=== PATIENT | male | born 1945 | race Caucasian/White ===

== ENCOUNTER → 2019-05-26 | Day surgery (SDC) | payer OTHER ==
[~2019-05-26] MED LIST: ACETAMINOPHEN 325 MG TABLET PO PRN; ALBUTEROL SULFATE 2.5 MG/3 ML NEBU. NEB PRN; ATROPINE 0.5 MG/5 ML DISP.SYRIN. IV PRN; IV RINGERS SOLUTION,LACTATED 1,000 ML IV SCH; MIDAZOLAM HCL PF 2 MG/2 ML VIAL. IV PRN; ONDANSETRON PF 4 MG/2 ML VIAL. IV PRN; PHENOL ORAL SPRAY 177ML BOTTLE. MM PRN; PROPOFOL 40 ML IV ONE; diphenhydrAMINE 50 MG/ML VIAL IV PRN
[2019-05-26 12:19] VITALS: BP 134/82
--- NOTE | 2019-05-30 10:07 | PATHOLOGY ---
[facility] Accession Number: [id number] . 01 Material submitted: . colon - TRANSVERSE COLON POLYP. Modifiers: transverse . 01 Clinical history: . Screening. . 02 Diagnosis: Colon biopsy, transverse colon polyp: - Diminutive tubular adenoma. . ([facility]; 05/29/2019) S 05/29/2019 1633 Local . 02 Comment: There is no high grade dysplasia or evidence of malignancy. . 02 Electronically signed: . Curtis Umanzor MD, Pathologist NPI- [id number] . 01 Gross description: . Received in formalin labeled "Carloz, Doug, transverse colon polyp" is a 0.3 x 0.3 x 0.2 cm fragment of chan-brown mucosa. The specimen is submitted in A1. ([facility] [place]/27/2019) [facility] 05/27/2019 1006 Local . 02 Pathologist provided ICD-10: D12.3 . 02 CPT . 803455 Specimen Comment: A courtesy copy of this report has been sent to [phone], [phone] Specimen Comment: [phone] Specimen Comment: Report sent to and Performed at: 01 [facility] [address], [place], [place] [id number] MD Dannie Oro MD Phone: [phone] Performed at: 02 [facility] [address] [place], [place] [id number] MD Curtis Umanzor MD Phone: [phone]
== END ==
LOC: SURG 09:48
PROVIDERS: ATTEND Internal Medicine Gastroenterology
DX: R19.5 Other fecal abnormalities (principal); D12.3 Benign neoplasm of transverse colon; K57.30 Diverticulosis of large intestine without perforation or abscess without bleeding; K64.0 First degree hemorrhoids; Z98.890 Other specified postprocedural states
CPT/HCPCS: 45380; 88305; J2704; J7120